=== PATIENT | female | born 1965 | race Caucasian/White ===

== ENCOUNTER 2023-05-11 16:33 | Outpatient (OUT) | payer OTHER, SELFPAY ==
--- NOTE | 2023-05-11 | MM_ITS ---
Patient Name: VANI ROBLES MR#: [id number] : 1965 Exam Date: 05/11/2023 Ordering Doctor: Non-Staff Physician RADIOLOGY REPORT PROCEDURE: MM TOMOSYNTHESIS SCREENING BI COMPARISON: MG MAMM SCREEN MARCELLUS W CAD, 04/24/2018. MG MAMM SCREEN 3D MARCELLUS CAD, 04/01/2021. INDICATIONS: Screening for malignant neoplasm Calculator Name NCI Breast Cancer Risk Assessment Tool 5 Year Breast Cancer Risk 1.30% Lifetime Breast Cancer Risk 8.50% Personal Breast Cancer No Personal Ovarian Cancer No Treatments None Family Cancers Aunt-paternal with breast cancer at age 60; Sister with ovarian cancer at age 20; Grandfather-paternal with stomach, colon cancer at age 70. LOCATION: [facility] BREAST COMPOSITION: Scattered areas fibroglandular density. Scattered benign-appearing calcifications are present. Scattered benign-appearing lymph nodes are present. RIGHT BREAST: No significant suspicious finding. LEFT BREAST: No significant suspicious finding. FINDINGS: DIAGNOSTIC CATEGORY 2--BENIGN FINDING. NO CHANGE FROM COMPARISON. RECOMMENDATIONS: ROUTINE MAMMOGRAM AND CLINICAL EVALUATION IN 12 MONTHS. PLEASE NOTE: A NORMAL MAMMOGRAM DOES NOT EXCLUDE THE POSSIBILITY OF BREAST CANCER. A CLINICALLY SUSPICIOUS PALPABLE LUMP SHOULD BE BIOPSIED. Dictated by: Cliff Coello MD on 05/12/2023 at 07:24 Approved by: Cliff Coello MD on 05/12/2023 at 07:26
== END 2023-05-11 16:34 | disposition home or self-care (01) ==
LOC: MAMMO 16:33
DX: Z12.31 Encounter for screening mammogram for malignant neoplasm of breast (principal); Z80.3 Family history of malignant neoplasm of breast; Z80.41 Family history of malignant neoplasm of ovary; Z80.0 Family history of malignant neoplasm of digestive organs
CPT/HCPCS: 77063; 77067